=== PATIENT | female | born 1960 | race Caucasian/White ===

== ENCOUNTER 2017-04-11 11:24 | Emergency (ER) | payer OTHER ==
[~2017-04-11] VITALS: Ht 162.6 cm; Wt 56.2 kg
[2017-04-11 13:15] LABS: HEMATOCRIT 35.9 % (36.0-46.0); MCH 31.4 PG (29.0-34.0); MCHC 33.1 G/DL (30.0-36.0); MCV 94.7 FL (83-99); MEAN PLAT.VOLUME 9.8 uM^3 (9.5-12.4); PLATELET COUNT 288 K/uL (156-360); RED BLOOD COUNT 3.79 M/uL (3.80-5.20); WHITE BLOOD COUNT 8.3 K/uL (4.1-10.2)
[2017-04-11 13:26] LABS: ANION GAP 10 MEQ/L (2-14); CHLORIDE 107 mEq/L (99-109); GLUCOSE 81 mg/dL (70-99); SODIUM 138 mEq/L (136-147)
[2017-04-11 13:32] LABS: GFR ESTIMATE (CALCULATED) > 59 mL/min/; TROP-I INTERPRETATION NEGATIVE; TROPONIN-I < 0.01 ng/mL (0.0-0.30); UREA NITROGEN (BUN) 11 mg/dL (9-23)
[2017-04-11 15:13] LABS: AMYLASE 57 IU/L (1-118)
[2017-04-11 15:17] LABS: TOTAL BILIRUBIN 0.5 mg/dL (0.0-1.0)
[2017-04-11 15:18] LABS: ALKALINE PHOSPHATASE 48 IU/L (3-129)
[2017-04-11 15:21] LABS: DIRECT BILIRUBIN 0.2 mg/dL (0.0-0.3)
[2017-04-11 15:22] LABS: LIPASE 14 U/L (1.0-51.0)
[2017-04-11 16:51] LABS: TROP-I INTERPRETATION NEGATIVE; TROPONIN-I < 0.01 ng/mL (0.0-0.30)
[2017-04-11 17:17] VITALS: BP 120/68
== END 2017-04-11 17:17 | disposition home or self-care (01) ==
LOC: EME 11:24
PROVIDERS: Physician Assistant
DX: R10.13 Epigastric pain (principal); R07.9 Chest pain, unspecified; K21.9 Gastro-esophageal reflux disease without esophagitis
CPT/HCPCS: 71020; 80048; 80076; 82150; 83690; 84484; 85027; 93005; 99281; 99284